=== PATIENT | female | born 1975 | race Two or more races ===

== ENCOUNTER 2018-07-18 14:36 | Emergency (ER) | payer OTHER ==
[~2018-07-18] VITALS: Ht 170.2 cm; Wt 86.2 kg
[~2018-07-18 14:36] MED LIST: ENBREL50 MG/M1 SQ; PERCOCET 5/3251 TAB PO
[2018-07-18] MEDS ORDERED: COZAAR25 MG (14:52)
[2018-07-18] MEDS ORDERED: NORVASC10 MG (14:52)
[2018-07-18] MEDS ORDERED: WELLBUTRIN XL300 MG PO (14:52)
[2018-07-18] MEDS ORDERED: RESTORIL30 MG (14:53)
[2018-07-18] MEDS ORDERED: PREDNISOLONE SO10 MG (14:54)
[2018-07-18] MEDS ORDERED: ZOCOR20 MG (14:54)
[2018-07-18] MEDS ORDERED: TRAZODONE HCL50 MG (14:54)
[2018-07-18] MEDS ORDERED: ZANTAC300 MG (14:55)
== END 2018-07-18 19:26 | disposition home or self-care (01) ==
LOC: ER 14:36
DX: M79.662 Pain in left lower leg (principal); M79.661 Pain in right lower leg; M54.5 Low back pain

== ENCOUNTER → 2019-01-07 | Emergency (ER) | payer OTHER ==
[~2019-01-07] VITALS: Ht 170.2 cm; Wt 86.2 kg
[~2019-01-07] MED LIST changes: +CLONAZEPAM0.25 MG PO; +COZAAR25 MG; +METROTEXATE PO; +NORVASC10 MG; +PREDNISOLONE SO10 MG; +RESTORIL30 MG; +TRAZODONE HCL50 MG; +WELLBUTRIN XL300 MG PO; +ZANTAC300 MG; +ZOCOR20 MG
== END | disposition designated cancer center or children's hospital (05) ==
LOC: ER 01:50
DX: R45.851 Suicidal ideations (principal); G43.909 Migraine, unspecified, not intractable, without status migrainosus

== ENCOUNTER 2019-02-07 09:36 | Emergency (ER) | payer OTHER ==
[~2019-02-07] VITALS: Ht 170.2 cm; Wt 86.2 kg
[~2019-02-07 09:36] MED LIST changes: -CLONAZEPAM0.25 MG PO; -METROTEXATE PO
[2019-02-07] MEDS ORDERED: METROTEXATE PO (09:50)
[2019-02-07] MEDS ORDERED: CLONAZEPAM0.25 MG PO (09:51)
== END 2019-02-07 12:36 | disposition home or self-care (01) ==
LOC: ER 09:36
DX: K29.70 Gastritis, unspecified, without bleeding (principal)

== ENCOUNTER 2019-02-22 15:57 | Emergency (ER) | payer OTHER ==
[~2019-02-22] VITALS: Ht 170.2 cm; Wt 86.2 kg
[~2019-02-22 15:57] MED LIST changes: +CLONAZEPAM0.25 MG PO; +METROTEXATE PO
[2019-02-22] MEDS ORDERED: HUMIRA PEN40 MG/0.2 (16:16)
[2019-02-23] MEDS ORDERED: [UNRECOGNIZED DRUG - OTHER] (17:04)
[2019-02-23] MEDS ORDERED: NEURONTIN (17:05)
== END 2019-02-22 19:23 | disposition home or self-care (01) ==
LOC: ER 15:57
DX: S92.351A Displaced fracture of fifth metatarsal bone, right foot, initial encounter for closed fracture (principal); X50.1XXA Overexertion from prolonged static or awkward postures, initial encounter; Y93.89 Activity, other specified; Y92.89 Other specified places as the place of occurrence of the external cause; Y99.8 Other external cause status

== ENCOUNTER 2019-02-23 15:45 | Emergency (ER) | payer OTHER ==
[~2019-02-23] VITALS: Ht 170.2 cm; Wt 86.2 kg
[~2019-02-23 15:45] MED LIST changes: +HUMIRA PEN40 MG/0.2
[2019-02-23] MEDS ORDERED: [UNRECOGNIZED DRUG - OTHER] (17:04)
[2019-02-23] MEDS ORDERED: NEURONTIN (17:05)
== END 2019-02-23 18:06 | disposition home or self-care (01) ==
LOC: ER 15:45
DX: M79.671 Pain in right foot (principal); S92.351D Displaced fracture of fifth metatarsal bone, right foot, subsequent encounter for fracture with routine healing; X50.1XXD Overexertion from prolonged static or awkward postures, subsequent encounter

== ENCOUNTER 2019-03-21 00:41 | Emergency (ER) | payer OTHER ==
[~2019-03-21] VITALS: Ht 170.2 cm; Wt 86.2 kg
[~2019-03-21 00:41] MED LIST changes: +NEURONTIN; +[UNRECOGNIZED DRUG - OTHER]
== END 2019-03-21 13:35 | disposition designated cancer center or children's hospital (05) ==
LOC: ER 00:41
DX: F41.8 Other specified anxiety disorders (principal); F32.89 Other specified depressive episodes; G43.809 Other migraine, not intractable, without status migrainosus; G44.89 Other headache syndrome

== ENCOUNTER 2019-07-04 21:14 | Emergency (ER) | payer OTHER ==
[~2019-07-04] VITALS: Ht 170.2 cm; Wt 113.4 kg
== END 2019-07-04 23:50 | disposition home or self-care (01) ==
LOC: ER 21:14
DX: S80.02XA Contusion of left knee, initial encounter (principal); S80.01XA Contusion of right knee, initial encounter; S70.01XA Contusion of right hip, initial encounter; S40.011A Contusion of right shoulder, initial encounter; R42 Dizziness and giddiness; R11.0 Nausea; W18.09XA Striking against other object with subsequent fall, initial encounter; Y93.89 Activity, other specified; Y92.018 Other place in single-family (private) house as the place of occurrence of the external cause; Y99.8 Other external cause status

== ENCOUNTER → 2019-08-16 | Emergency (ER) | payer OTHER ==
[~2019-08-16] VITALS: Ht 170.2 cm; Wt 97.5 kg
[~2019-08-16] MED LIST changes: +CARAFATE1 GM
== END | disposition designated cancer center or children's hospital (05) ==
LOC: ER 15:41
DX: F32.89 Other specified depressive episodes (principal)